=== PATIENT | male | born 1990 | race Caucasian/White ===

== ENCOUNTER 2016-11-22 18:31 | Emergency (ER) | payer OTHER ==
[2016-11-22 18:36] VITALS: TEMP 97.9
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
[2016-11-22] MEDS ORDERED: IBUPROFEN 200 MG TAB PO ONE (19:34)
[2016-11-22] MEDS ORDERED: HYDROCOD/APAP 5/325 PREPACK#6 BTL TAKEHOME ONE ×2 (19:34→19:36)
[2016-11-22] MEDS ORDERED: IBUPROFEN 800 MG TAB PO ONE (19:36)
[2016-11-22 19:48] VITALS: BP 128/79; PULSE 70; RESP 14; O2SAT 98
== END 2016-11-22 19:52 | disposition home or self-care (01) ==
PROC: 2W3DX1Z Immobilization of Left Lower Arm using Splint (ICD-10-PCS; principal; 2016-11-22)
DX: S52.135A Nondisplaced fracture of neck of left radius, initial encounter for closed fracture (principal); V49.9XXA Car occupant (driver) (passenger) injured in unspecified traffic accident, initial encounter; Y92.410 Unspecified street and highway as the place of occurrence of the external cause

== ENCOUNTER 2016-12-11 16:27 | Emergency (ER) | payer OTHER ==
[2016-12-11 17:45] LABS: COLOR PALE YELLOW; LEUKOCYTE ESTERASE,URINE 1+ (NEGATIVE); NITRITE,URINE NEGATIVE (NEGATIVE)
[2016-12-11 17:49] LABS: BACTERIA TRACE /hpf (NONE SEEN); MUCUS TRACE /lpf (NONE-1+); RBC,URINE 50-182 /hpf (0-3)
--- NOTE | 2016-12-11 19:46 | EDPHY ---
H & P Stated Complaint: dysuria/hematuria Source: Patient Exam Limitations: No limitations - Personal History Current Tetanus/Diphtheria Vaccine: Yes - Medical/Surgical History Hx Asthma: No Hx Chronic Respiratory Disease: No Hx Diabetes: No Hx Cardiac Disease: No Hx Renal Disease: No Hx Cirrhosis: No Hx Alcoholism: No Hx HIV/AIDS: No Hx Splenectomy or Spleen Trauma: No Other PMH: pmh- anxiety. psh- flat foot surgery/kidney stones - Social History Smoking Status: Never smoked HPI/ROS: CHIEF COMPLAINT: Flank pain, fever, dysuria HISTORY OF PRESENT ILLNESS: Fever on Saturday it was a T-max of 101.5, some dysuria over the past few days, some flank pain. The symptoms have varied over the past few days he no longer has a fever. The pain in the flank has significantly improved but is transiently present. No generalized abdominal pain no gross hematuria at this time he did have some on Saturday. No headache. Nausea but no vomiting. No other associated complaints. Has a history of renal stones several years ago. 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 Sees a urologist for this. Went to urgent care today and they sent him here due to higher level of care. No other associated complaints or modifying factors. PREVIOUS ABDOMINAL SURGERIES/DIAGNOSES: Bilateral renal lithiasis. Malrotated right kidney REVIEW OF SYSTEMS: Ten systems reviewed and are negative unless otherwise noted in the HPI EXAMINATION: General Appearance: Alert, no distress Head: normocephalic, atraumatic Eyes: Pupils equal and round, no conjunctival pallor or injection ENT, Mouth: Mucous membranes moist Neck: Normal inspection, supple, non-tender Respiratory: Lungs are clear to auscultation. No wheezing, rhonchi or crackles Cardiovascular: Regular rate and rhythm. No murmur. Pulses intact distally Gastrointestinal: Abdomen is soft and nontender. No tympany. No rigidity. minimal right CVA tenderness. Non-acute abdomen. Neurological: A&O, nonfocal, normal gait Skin: Warm and dry, no rash Extremities: Nontender, no pedal edema Psychiatric: Mood and affect normal DIFFERENTIAL DIAGNOSES: Including but not limited to Renal lithiasis, ureterolithiasis, pyelonephritis, UTI, cystitis MDM: 7:35 p.m. flank pain with hematuria and previously with fever over the weekend. Does have a history of kidney stone. Still having some right flank pain and urethral pain. Urine reveals hematuria with sinus rate and white blood cells. I have ordered a CT scan and plain to look for stones. Vital signs were well within normal limits. 8:30 p.m. radiologist contacted me and notified me that there is evidence of chronic renal stones that are unchanged in appearance. There is a malrotated kidney is also chronic. No acute findings. Specifically no acute hydronephrosis or inflammation both kidneys. He did note some constipation throughout. I have re -evaluated the patient and at this time he is resting comfortably. I discussed discharge home with treatment of his urinary tract infection and no further care. Follow up with his established urologist for definitive care. The patient is comfortable with this plan. ED Precautions: Worsening pain. Fever. Bloody stools. Bloody emesis. Constipation or diarrhea. SUPERVISION: This patient was independently evaluated without the aide of supervising physician. (Gareth Lowery) Constitutional: Initial Vital Signs Temperature (C) 36.7 C 12/11/16 16:41 Heart Rate 76 12/11/16 16:41 Respiratory Rate 17 12/11/16 16:41 Blood Pressure 114/66 12/11/16 16:41 O2 Sat (%) 99 12/11/16 16:41 O2 Delivery Mode Room Air Allergies/Adverse Reactions: diazepam [Diazepam] Allergy (Severe, Verified 12/11/16 16:40) DIFFICULTY BREATHING cefaclor [From Ceclor] Allergy (Verified 12/11/16 16:40) Home Medications: Medication Instructions Recorded Neurontin 12/18/10 Klonopin (RX) 07/29/15 Trileptal 11/22/16 Ciprofloxacin [Cipro] 500 mg PO BID #14 tab 12/11/16 Magnesium Citrate [Magnesium 300 ml PO ONCE #1 bottle 12/11/16 Citrate 300 ml (*)] Medical Decision Making ED Course/Re-evaluation: I did not see this patient while he was in the emergency department. However his care was discussed with the PA while the patient was in the department. I agree with treatment plan and management (Michael Phillip) - Data Points Laboratory Results: 12/11/16 16:48 Urine Color PALE YELLOW Urine Appearance CLEAR Urine pH 7.0 (5.0-7.5) Ur Specific [place] 1.008 (1.002-1.030) Urine Protein NEGATIVE (NEGATIVE) Urine Ketones NEGATIVE (NEGATIVE) Urine Blood 3+ H (NEGATIVE) Urine Nitrate NEGATIVE (NEGATIVE) Urine Bilirubin NEGATIVE (NEGATIVE) Urine Urobilinogen NEGATIVE EU (0.2-1.0) Ur Leukocyte Esterase 1+ H (NEGATIVE) Urine RBC 50-182 H /hpf (0-3) Urine WBC 10-15 H /hpf (0-3) Ur Epithelial Cells NONE SEEN /lpf (NONE-1+) Urine Bacteria TRACE H /hpf (NONE SEEN) Urine Mucus TRACE /lpf (NONE-1+) Urine Glucose NEGATIVE (NEGATIVE) Medications Given: Discontinued Medications Ciprofloxacin (Cipro) 500 mg PO EDNOW ONE PRN Reason: Protocol Stop: 12/11/16 20:56 Last Admin: 12/11/16 21:03 Dose: 500 mg Departure - Departure Disposition: Home, Routine, Self-Care Clinical Impression: UTI (urinary tract infection), Renal colic on right side, Microscopic hematuria Condition: Good Instructions: Urinary Tract Infection in Men (ED) Additional Instructions: Follow up with established urologist. Also follow up with primary care physician for further care. Return to the ER for worsening pain, fever, chills , nausea, vomiting Referrals: NONE *PRIMARY CARE P,. [Primary Care Provider] - As per Instructions Marlen Cortez MD [Medical Doctor] - As per Instructions Prescriptions: Ciprofloxacin [Cipro] 500 mg PO BID #14 tab Magnesium Citrate [Magnesium Citrate 300 ml (*)] 300 ml PO ONCE #1 bottle
--- NOTE | 2016-12-11 20:30 | CT ---
CT Abdomen and Pelvis (Without Contrast) at 1953 hours History: Right flank pain, history of nephrolithiasis, and malrotated right kidney. Technique: Spiral images were acquired from the upper abdomen through the pelvis, without intravenou s or oral contrast, which limits the study. Dose reduction techniques were utilized. Comparison: CT July 2015. Findings Abdomen: Malrotated right pelvic kidney, with the renal pelvis anteriorly placed. There is a 4-mm c alyceal calculus in the lower pole right kidney on image #144, series #4. No hydronephrosis. The le ft kidney is in normal position, with three calculi measuring from 2 to 3 mm within the calyces. How ever, no hydronephrosis or ureterolithiasis. A large amount of stool throughout the colon consistent with constipation. No small bowel obstructio n. No hepatosplenomegaly or ascites. No aortic aneurysm or significant adenopathy. No peripancreatic f luid. No pleural effusion at the lung bases. Pelvis: No evidence of distal ureteral calculi, hydroureter or bladder calculi. The appendix appear s normal, without inflammatory changes. Impression: 1. Bilateral nonobstructive nephrolithiasis. 2. Right kidney is malrotated and located in the pelvis. 3. Constipation. 4. No evidence of appendicitis or bowel obstruction. Findings and recommendations discussed with Emergency Department physician, Gareth Lowery PA-C, at 20 15 hours, on December 11, 2016. Final report concurs with initial preliminary interpretation. Attention: This CT examination is specifically designed to evaluate patients who are clinically susp ected of having acute obstructive uropathy. This examination does not use radiographic contrast, and as such, provides only a limited evaluation of the abdomen, pelvis, and retroperitoneum. If there i s further clinical suspicion for pathological conditions other than obstructive uropathy, a complete CT evaluation of the abdomen and pelvis utilizing intravenous, oral, and rectal contrast should be co nsidered.
[2016-12-11] MEDS ORDERED: CIPROFLOXACIN 500 MG TAB PO ONE (20:55)
[2016-12-11 21:05] VITALS: BP 110/65; PULSE 65; RESP 16; TEMP 98.6; O2SAT 95
== END 2016-12-11 21:05 | disposition home or self-care (01) ==
DX: N39.0 Urinary tract infection, site not specified (principal); B96.89 Other specified bacterial agents as the cause of diseases classified elsewhere; N23 Unspecified renal colic; R31.29 Other microscopic hematuria

== ENCOUNTER → 2017-12-11 | Outpatient (CLI) | payer OTHER ==
[~2017-12-11] MED LIST: IOPAMIDOL (ISOVUE-300) 100 ML BTL ONE
== END ==
LOC: FIMAGING 15:37
PROVIDERS: ATTEND Internal Medicine
DX: N20.0 Calculus of kidney (principal); K59.00 Constipation, unspecified; Q63.8 Other specified congenital malformations of kidney; I87.8 Other specified disorders of veins
CPT/HCPCS: Q9967

== ENCOUNTER 2017-12-13 20:09 | Emergency (ER) | payer OTHER ==
[2017-12-13 20:18] VITALS: BP 130/76; PULSE 77; RESP 20; TEMP 97.9; O2SAT 98
--- NOTE | 2017-12-13 21:03 | EDPHY ---
H & P Time Seen by Provider: 12/13/17 20:21 HPI/ROS: HPI Abdominal pain. Elevated lipase. 26-year-old male by private vehicle. This patient reports that about 1 week ago he developed epigastric pain with some radiation in the left upper quadrant of his abdomen. He describes this as a cramping and burning sensation. He was seen by his primary care physician on the . He had blood work done at that time. His lipase was elevated at 875. He then saw his primary care physician again on the . He had a CT scan done that day as an outpatient. The CT of his abdomen and pelvis was unremarkable except for some constipation. The pancreas is well visualized and did not show any significant inflammation. The gallbladder was unremarkable as well. He received a call from his primary care physician today a regarding his repeat blood work. His lipase had elevated to 1300. He denies any significant pain at this time. He has had no nausea or vomiting. He denies any history of alcohol abuse. He reports normal bowel movements. He has no other complaints. His primary care physician has an appointment set up for him with Gastroenterology next Saturday. ROS: Constitutional: No fever, no chills. No weakness. Eyes: No discharge. No changes in vision. ENT: No sore throat. No nasal congestion or rhinorrhea. Respiratory: No cough. No shortness of breath. Cardiac: No chest pain, no palpitations. Gastrointestinal: As above, no vomiting, no diarrhea. Genitourinary: No hematuria. No dysuria or increased frequency with urination. Musculoskeletal: No back pain. No neck pain. No myalgias or arthralgias. Skin: No rashes. Neurological: No headache. No focal weakness or altered sensation. Past medical history: Anxiety, foot surgery, kidney stones. Social history: Drinks alcohol occasionally. Nonsmoker. Here by himself. Physical Exam: General Appearance: Alert, no distress. This patient is responding to questions appropriately and in full sentences. This patient appears well- hydrated and well-nourished. Eyes: Pupils equal and round no pallor or injection. No lid edema, erythema or injection. Respiratory: There are no retractions, lungs are clear to auscultation with good air movement bilaterally. Cardiovascular: Regular rate and rhythm. No murmur. Gastrointestinal: Abdomen is soft with mild epigastric tenderness on palpation , no masses, bowel sounds normal. No focal tenderness at McBurney's point. No Sanchez sign. Neurological: Motor sensory function is grossly intact. Cranial nerves are normal. Gait is normal. Skin: Warm and dry, no rashes. Musculoskeletal: Neck is supple and nontender. Extremities are symmetrical. All joints range without pain or impingement. Psychiatric: No agitation. No depression. Database: EKG: Imaging: Procedures: Emergency department course: Vital signs reviewed and are normal. His CT report from December 11 was reviewed by myself. His blood work from December 09 and December 11 was reviewed by myself. Elevation of his lipase is concerning. However at this time I do not think he would benefit from admission. He is not vomiting. He does not have significant pain. I offered him admission but he declined. He does feel comfortable going home. Plan will be to have him follow up with his primary care physician on Saturday to have his lipase repeated. He has a scheduled appointment with Gastroenterology set for Saturday. I have course thoroughly reviewed return to emergency department precautions over the weekend. All of his questions were answered. He was discharged from the emergency department in good condition. Differential Diagnosis: The differential diagnosis on this patient includes but is not limited to pancreatitis. Gallstone pancreatitis, cholecystitis, ulcerative gastritis unlikely. This represents a partial list of diagnoses considered. These considerations are based on history, physical exam, past history, reassessment and diagnostic testing. Smoking Status: Never smoked Constitutional: Initial Vital Signs Temperature (C) 36.6 C 12/13/17 20:16 Heart Rate 77 12/13/17 20:16 Respiratory Rate 20 12/13/17 20:16 Blood Pressure 130/76 H 12/13/17 20:16 O2 Sat (%) 98 12/13/17 20:16 O2 Delivery Mode Room Air Allergies/Adverse Reactions: diazepam [Diazepam] Allergy (Severe, Verified 12/11/16 16:40) DIFFICULTY BREATHING cefaclor [From Ceclor] Allergy (Verified 12/11/16 16:40) midazolam [From Versed] Allergy (Verified 12/13/17 20:14) Hives Home Medications: Medication Instructions Recorded Neurontin 12/18/10 Klonopin (RX) 07/29/15 Trileptal 11/22/16 Departure - Departure Disposition: Home, Routine, Self-Care Clinical Impression: Pancreatitis Condition: Good Instructions: Pancreatitis (ED) Additional Instructions: Read and follow provided instructions. Follow-up with your primary care physician on Saturday as discussed for re- evaluation and repeat lipase. See your fish technologist as scheduled on Saturday. Return to the emergency department for worsening pain, fever, vomiting, blood in your stool or other serious concerns. Referrals: Jose Holguin MD [Primary Care Provider] - As per Instructions
== END 2017-12-13 21:00 | disposition home or self-care (01) ==
DX: K85.90 Acute pancreatitis without necrosis or infection, unspecified (principal)

== ENCOUNTER → 2017-12-19 | Outpatient (CLI) | payer OTHER | LOC: FIMAGING 12:53 | PROVIDERS: ATTEND Urology | DX: N20.0 Calculus of kidney (principal); K59.00 Constipation, unspecified ==

== ENCOUNTER → 2018-01-29 | Outpatient (CLI) | payer OTHER ==
[~2018-01-29] MED LIST changes: +GADOBUTROL 10 ML VIAL IVP ONE; -IOPAMIDOL (ISOVUE-300) 100 ML BTL ONE
== END ==
LOC: FIMAGING 07:47
PROVIDERS: ATTEND Physician Assistant
DX: R10.12 Left upper quadrant pain (principal); N20.0 Calculus of kidney; K59.00 Constipation, unspecified
CPT/HCPCS: A9585

== ENCOUNTER → 2018-04-16 | Outpatient (CLI) | payer OTHER | LOC: FIMAGING 14:29 | DX: M54.5 Low back pain (principal) ==